=== PATIENT | male | born 1930 | race Asian ===

== ENCOUNTER 2016-10-20 09:26 | Outpatient (RCR) | payer MEDICARE, MEDICAID ==
[~2016-10-20 09:26] MED LIST: ASP81CT PO; ATRV10T PO; CLOP75TA PO; CTLP20T PO; DOCU100T7 PO; MIRT30TA6 PO; PNT40TEC PO
== END 2017-01-18 | disposition home or self-care (01) ==
LOC: LAB 09:26
PROVIDERS: ATTEND Internal Medicine Hematology & Oncology
DX: R05 Cough (principal)
CPT/HCPCS: 87070; 87186; 87205